=== PATIENT | male | born 1960 | race American Indian/Alaskan Native ===

== ENCOUNTER 2020-08-13 18:20 | Emergency (ER) | payer MEDICAID ==
--- NOTE | 2020-08-13 20:11 | Event Note ---
ED Screening Note ED Screening Note: Patient presents for hyperglycemia Has been out of his Metformin 100 mg twice daily for a month He states he is also out of his Seroquel, advised patient that we do not refill Seroquel from the emergency department This initial assessment/diagnostic orders/clinical plan/treatment(s) is/are subject to change based on patients health status, clinical progression and re- assessment by fellow clinical providers in the ED. Further treatment and workup at subsequent clinical providers discretion. Patient/guardian urged not to elope from the ED as their condition may be serious if not clinically assessed and managed. Initial orders include: labs
[2020-08-13 20:56] LABS: Basophils # (Auto) 0.1 K/mm3 (0.0-0.1); Eosinophils # (Auto) 0.1 K/mm3 (0.0-0.4); Eosinophils % (Auto) 1.3 % (0.0-4.3); Hematocrit 38.2 % (35.5-45.6); Hemoglobin 12.9 gm/dl (11.8-15.2); Lymphocytes # (Auto) 2.4 K/mm3 (1.2-5.4); Lymphocytes % (Auto) 29.4 % (13.4-35.0); Mean Corpuscular HGB Conc 34 % (32-34); Mean Corpuscular Volume 95 fl (84-94); Monocytes # (Auto) 0.7 K/mm3 (0.0-0.8); Monocytes % (Auto) 8.2 % (0.0-7.3); Platelet Count 346 K/mm3 (140-440); Red Blood Count 4.03 M/mm3 (3.65-5.03); Red Cell Distribution Width 14.2 % (13.2-15.2)
[2020-08-13 21:12] LABS: Alanine Aminotransferase 102 units/L (7-56); Albumin 4.1 g/dL (3.9-5); Blood Urea Nitrogen 9 mg/dL (9-20); Calcium 9.4 mg/dL (8.4-10.2); Hemolysis Index 42
[2020-08-13] MEDS ORDERED: SODIUM CHLORIDE 0.9% 1000 ML 1,000 ML IV ONE ×2 (21:27→21:29)
[2020-08-13 21:30] LABS: BUN/Creatinine Ratio 13
--- NOTE | 2020-08-13 22:39 | Emergency Department Report ---
ED General Adult HPI - General Chief complaint: Medical Clearance Stated complaint: DIBETIS Time Seen by Provider: 08/13/20 20:00 Source: patient Mode of arrival: Ambulatory Limitations: No Limitations - History of Present Illness Initial comments: This is a 60-year-old male nontoxic, well nourished in appearance, no acute signs of distress presents to the ED with c/o of hyperglycemia. Patient stated he has been out of his Metformin 500 mg BID for the past 1 month. Patient otherwise denies any symptoms or pain. Patient state he came into emergency room for medication refill. Patient denies any chest pain, shortness of breath, fever, chills, nausea, vomiting, headache or stiff neck. Patient denies any abdominal pain or back pain or flank pain. Patient stated allergies to penicillin. Patient denies any suicidal or homicidal ideation. Severity scale (0 -10): 0 Improves with: none Worsens with: none Associated Symptoms: denies other symptoms. denies: confusion, chest pain, cough, diaphoresis, fever/chills, headaches, loss of appetite, malaise, nausea/vomiting, rash, seizure, shortness of breath, syncope, weakness Treatments Prior to Arrival: none - Related Data Previous Rx's Medication Instructions Recorded Last Taken Type metFORMIN [Glucophage] 500 mg PO BID #30 tablet 08/14/20 Unknown Rx Allergies Allergy/AdvReac Type Severity Reaction Status Date / Time Penicillins Allergy Unknown Verified 08/13/20 19:42 ED Review of Systems ROS: Stated complaint: DIBETIS Other details as noted in HPI Comment: All other systems reviewed and negative Constitutional: denies: chills, fever Eyes: denies: eye pain, eye discharge, vision change ENT: denies: ear pain, throat pain Respiratory: denies: cough, shortness of breath, wheezing Cardiovascular: denies: chest pain, palpitations Endocrine: no symptoms reported Gastrointestinal: denies: abdominal pain, nausea, diarrhea Genitourinary: denies: urgency, dysuria Musculoskeletal: denies: back pain, joint swelling, arthralgia Skin: denies: rash, lesions Neurological: denies: headache, weakness, paresthesias Psychiatric: denies: anxiety, depression Hematological/Lymphatic: denies: easy bleeding, easy bruising ED Past Medical Hx - Past Medical History Previous Medical History?: Yes Hx Hypertension: Yes Hx Diabetes: Yes Hx Psychiatric Treatment: Yes (depression) - Surgical History Past Surgical History?: Yes Additional Surgical History: spleen removed - Medications Home Medications: Home Medications Medication Instructions Recorded Confirmed Last Taken Type metFORMIN [Glucophage] 500 mg PO BID #30 tablet 08/14/20 Unknown Rx ED Physical Exam - General Limitations: No Limitations General appearance: alert, in no apparent distress - Head Head exam: Present: atraumatic, normocephalic - Eye Eye exam: Present: normal appearance - Neck Neck exam: Present: normal inspection, full ROM. Absent: tenderness, meni ngismus, lymphadenopathy - Respiratory Respiratory exam: Present: normal lung sounds bilaterally. Absent: respiratory distress, wheezes, rales, rhonchi, stridor, chest wall tenderness, accessory muscle use, decreased breath sounds, prolonged expiratory - Cardiovascular Cardiovascular Exam: Present: regular rate, normal rhythm, normal heart sounds. Absent: bradycardia, tachycardia, irregular rhythm, systolic murmur, diastolic murmur, rubs, gallop - GI/Abdominal GI/Abdominal exam: Present: soft, normal bowel sounds. Absent: distended, tenderness, guarding, rebound, rigid, diminished bowel sounds - Extremities Exam Extremities exam: Present: full ROM - Back Exam Back exam: Present: full ROM - Neurological Exam Neurological exam: Present: alert, oriented X3, normal gait - Psychiatric Psychiatric exam: Present: normal affect, normal mood - Skin Skin exam: Present: warm, dry, intact, normal color. Absent: rash ED Course Vital Signs 08/13/20 19:46 Temperature 98.4 F Pulse Rate 82 Respiratory 16 Rate Blood Pressure 148/83 O2 Sat by Pulse 97 Oximetry - Reevaluation(s) Reevaluation #1: 08/13/20 22:37 Patient is speaking in full sentences with no signs of distress noted. ED Medical Decision Making - Lab Data Result diagrams: 08/13/20 20:35 08/13/20 20:35 Lab Results 08/13/20 08/13/20 08/13/20 Range/Units 20:06 20:35 20:35 WBC 8.1 (4.5-11.0) K/mm3 RBC 4.03 (3.65-5.03) M/mm3 Hgb 12.9 (11.8-15.2) gm/dl Hct 38.2 (35.5-45.6) % MCV 95 H (84-94) fl MCH 32 (28-32) pg MCHC 34 (32-34) % RDW 14.2 (13.2-15.2) % Plt Count 346 (140-440) K/mm3 Lymph % (Auto) 29.4 (13.4-35.0) % [place] % (Auto) 8.2 H (0.0-7.3) % Eos % (Auto) 1.3 (0.0-4.3) % Baso % (Auto) 1.0 (0.0-1.8) % Lymph # (Auto) 2.4 (1.2-5.4) K/mm3 [place] # (Auto) 0.7 (0.0-0.8) K/mm3 Eos # (Auto) 0.1 (0.0-0.4) K/mm3 Baso # (Auto) 0.1 (0.0-0.1) K/mm3 Seg Neutrophils % 60.1 (40.0-70.0) % Seg Neutrophils # 4.9 (1.8-7.7) K/mm3 VBG pH (7.320-7.420) Sodium 134 L (137-145) mmol/L Potassium 3.8 (3.6-5.0) mmol/L Chloride 101.9 (98-107) mmol/L Carbon Dioxide 19 L (22-30) mmol/L Anion Gap 17 mmol/L BUN 9 (9-20) mg/dL Creatinine 0.7 L (0.8-1.3) mg/dL Estimated GFR > 60 ml/min BUN/Creatinine Ratio 13 % Glucose 350 H (75-100) mg/dL POC Glucose 351 H (70-105) mg/dL Calcium 9.4 (8.4-10.2) mg/dL Total Bilirubin 0.20 (0.1-1.2) mg/dL AST 84 H (5-40) units/L ALT 102 H (7-56) units/L Alkaline Phosphatase 295 H (35-129) units/L Total Protein 7.1 (6.3-8.2) g/dL Albumin 4.1 (3.9-5) g/dL Albumin/Globulin Ratio 1.4 % 12/21/20 Range/Units 20:35 WBC (4.5-11.0) K/mm3 RBC (3.65-5.03) M/mm3 Hgb (11.8-15.2) gm/dl Hct (35.5-45.6) % MCV (84-94) fl MCH (28-32) pg MCHC (32-34) % RDW (13.2-15.2) % Plt Count (140-440) K/mm3 Lymph % (Auto) (13.4-35.0) % [place] % (Auto) (0.0-7.3) % Eos % (Auto) (0.0-4.3) % Baso % (Auto) (0.0-1.8) % Lymph # (Auto) (1.2-5.4) K/mm3 [place] # (Auto) (0.0-0.8) K/mm3 Eos # (Auto) (0.0-0.4) K/mm3 Baso # (Auto) (0.0-0.1) K/mm3 Seg Neutrophils % (40.0-70.0) % Seg Neutrophils # (1.8-7.7) K/mm3 VBG pH 7.366 (7.320-7.420) Sodium (137-145) mmol/L Potassium (3.6-5.0) mmol/L Chloride (98-107) mmol/L Carbon Dioxide (22-30) mmol/L Anion Gap mmol/L BUN (9-20) mg/dL Creatinine (0.8-1.3) mg/dL Estimated GFR ml/min BUN/Creatinine Ratio % Glucose (75-100) mg/dL POC Glucose (70-105) mg/dL Calcium (8.4-10.2) mg/dL Total Bilirubin (0.1-1.2) mg/dL AST (5-40) units/L ALT (7-56) units/L Alkaline Phosphatase (35-129) units/L Total Protein (6.3-8.2) g/dL Albumin (3.9-5) g/dL Albumin/Globulin Ratio % Lab Results 08/13/20 08/13/20 08/13/20 Range/Units 20:06 20:35 20:35 WBC 8.1 (4.5-11.0) K/mm3 RBC 4.03 (3.65-5.03) M/mm3 Hgb 12.9 (11.8-15.2) gm/dl Hct 38.2 (35.5-45.6) % MCV 95 H (84-94) fl MCH 32 (28-32) pg MCHC 34 (32-34) % RDW 14.2 (13.2-15.2) % Plt Count 346 (140-440) K/mm3 Lymph % (Auto) 29.4 (13.4-35.0) % [place] % (Auto) 8.2 H (0.0-7.3) % Eos % (Auto) 1.3 (0.0-4.3) % Baso % (Auto) 1.0 (0.0-1.8) % Lymph # (Auto) 2.4 (1.2-5.4) K/mm3 [place] # (Auto) 0.7 (0.0-0.8) K/mm3 Eos # (Auto) 0.1 (0.0-0.4) K/mm3 Baso # (Auto) 0.1 (0.0-0.1) K/mm3 Seg Neutrophils % 60.1 (40.0-70.0) % Seg Neutrophils # 4.9 (1.8-7.7) K/mm3 VBG pH (7.320-7.420) Sodium 134 L (137-145) mmol/L Potassium 3.8 (3.6-5.0) mmol/L Chloride 101.9 (98-107) mmol/L Carbon Dioxide 19 L (22-30) mmol/L Anion Gap 17 mmol/L BUN 9 (9-20) mg/dL Creatinine 0.7 L (0.8-1.3) mg/dL Estimated GFR > 60 ml/min BUN/Creatinine Ratio 13 % Glucose 350 H (75-100) mg/dL POC Glucose 351 H (70-105) mg/dL Calcium 9.4 (8.4-10.2) mg/dL Total Bilirubin 0.20 (0.1-1.2) mg/dL AST 84 H (5-40) units/L ALT 102 H (7-56) units/L Alkaline Phosphatase 295 H (35-129) units/L Total Protein 7.1 (6.3-8.2) g/dL Albumin 4.1 (3.9-5) g/dL Albumin/Globulin Ratio 1.4 % 12/21/20 12/22/20 Range/Units 20:35 00:39 WBC (4.5-11.0) K/mm3 RBC (3.65-5.03) M/mm3 Hgb (11.8-15.2) gm/dl Hct (35.5-45.6) % MCV (84-94) fl MCH (28-32) pg MCHC (32-34) % RDW (13.2-15.2) % Plt Count (140-440) K/mm3 Lymph % (Auto) (13.4-35.0) % [place] % (Auto) (0.0-7.3) % Eos % (Auto) (0.0-4.3) % Baso % (Auto) (0.0-1.8) % Lymph # (Auto) (1.2-5.4) K/mm3 [place] # (Auto) (0.0-0.8) K/mm3 Eos # (Auto) (0.0-0.4) K/mm3 Baso # (Auto) (0.0-0.1) K/mm3 Seg Neutrophils % (40.0-70.0) % Seg Neutrophils # (1.8-7.7) K/mm3 VBG pH 7.366 (7.320-7.420) Sodium (137-145) mmol/L Potassium (3.6-5.0) mmol/L Chloride (98-107) mmol/L Carbon Dioxide (22-30) mmol/L Anion Gap mmol/L BUN (9-20) mg/dL Creatinine (0.8-1.3) mg/dL Estimated GFR ml/min BUN/Creatinine Ratio % Glucose (75-100) mg/dL POC Glucose 248 H (70-105) mg/dL Calcium (8.4-10.2) mg/dL Total Bilirubin (0.1-1.2) mg/dL AST (5-40) units/L ALT (7-56) units/L Alkaline Phosphatase (35-129) units/L Total Protein (6.3-8.2) g/dL Albumin (3.9-5) g/dL Albumin/Globulin Ratio % - Medical Decision Making 60-year-old male that presents with hyperglycemia. Patient is stable and was examined by me. Labs are unremarkable. Patient is not in DKA. Patient received 2 L normal saline which sugar levels has decreased. Patient will be discharged with refill for his Metformin. Patient otherwise is stable and exam is unremarkable. Patient was instructed to follow-up with a primary care doctor in 3-5 days or if symptoms worsen and continue return to emergency room as soon as possible. At time of discharge, the patient does not seem toxic or ill in appearance. No acute signs of distress noted. Patient agrees to discharge treatment plan of care. No further questions noted by the patient. Critical care attestation.: If time is entered above; I have spent that time in minutes in the direct care of this critically ill patient, excluding procedure time. ED Disposition Clinical Impression: Hyperglycemia due to diabetes mellitus, Noncompliance with diabetes treatment Disposition: DC- TO HOME OR SELFCARE Is pt being admited?: No Does the pt Need Aspirin: No Condition: Stable Instructions: Diabetes Mellitus Type 2 in Adults (ED), Type 2 Diabetes Mellitus, Self Care, Adult, [id number] Additional Instructions: Follow-up with a primary care doctor in 3-5 days or if symptoms worsen and continue return to emergency room as soon as possible. Prescriptions: metFORMIN [Glucophage] 500 mg PO BID #30 tablet Referrals: PRIMARY MD RALPH [Primary Care Provider] - 3-5 Days CLARIBEL ERICKSON MD [Staff Physician] - 3-5 Days Time of Disposition: 00:52
[2020-08-14 01:37] VITALS: BP 187/103
== END 2020-08-14 01:38 | disposition home or self-care (01) ==
LOC: ED 18:20
DX: E11.65 Type 2 diabetes mellitus with hyperglycemia (principal); I10 Essential (primary) hypertension; F32.9 Major depressive disorder, single episode, unspecified; Z91.19 Patient's noncompliance with other medical treatment and regimen; Z98.890 Other specified postprocedural states; Z79.84 Long term (current) use of oral hypoglycemic drugs; Z88.0 Allergy status to penicillin
CPT/HCPCS: 36415; 80053; 82805; 82962; 85025; 96360; 96361; 99283; J7030

== ENCOUNTER 2020-10-10 18:49 | Emergency (ER) | payer MEDICAID ==
[2020-10-10 19:19] VITALS: BP 163/83
[2020-10-10] MEDS ORDERED: SODIUM CHLORIDE 0.9% 1000 ML 1,000 ML IV ONE (19:37)
--- NOTE | 2020-10-10 19:37 | Emergency Department Report ---
ED General Adult HPI - General Chief complaint: Hyperglycemia Stated complaint: DIABETIC/MED REFILL/RASH/LEGS PUI?: No Source: patient Mode of arrival: Ambulatory Limitations: No Limitations - History of Present Illness Initial comments: 60 /o male with a diabetes and has been off his Metformin for several months. Complains of dry month urinary frequency. Admits that he drinks and had a few beers today. He denies any pain. Patient reports he does not have a primary care provider that is local. Patient denies any chest pain shortness of breathing abdominal pain nausea vomiting or diarrhea. Onset/Timin -: month(s) Severity scale (0 -10): 0 Improves with: none Worsens with: none Associated Symptoms: denies: loss of appetite, weakness Treatments Prior to Arrival: none - Related Data Previous Rx's Medication Instructions Recorded Last Taken Type metFORMIN [Glucophage] 500 mg PO BID #30 tablet 08/14/20 Unknown Rx Metformin HCl [metFORMIN] 1,000 mg PO BID #60 tablet 10/10/20 Unknown Rx Allergies Allergy/AdvReac Type Severity Reaction Status Date / Time Penicillins Allergy Unknown Verified 08/13/20 19:42 ED Review of Systems ROS: Stated complaint: DIABETIC/MED REFILL/RASH/LEGS Other details as noted in HPI Comment: All other systems reviewed and negative ED Past Medical Hx - Past Medical History Hx Hypertension: Yes Hx Diabetes: Yes Hx Psychiatric Treatment: Yes (depression) - Surgical History Additional Surgical History: spleen removed - Social History Smoking Status: Current Every Day Smoker Substance Use Type: None - Medications Home Medications: Home Medications Medication Instructions Recorded Confirmed Last Taken Type metFORMIN [Glucophage] 500 mg PO BID #30 tablet 08/14/20 Unknown Rx Metformin HCl [metFORMIN] 1,000 mg PO BID #60 tablet 10/10/20 Unknown Rx ED Physical Exam - General Limitations: No Limitations General appearance: alert, in no apparent distress - Head Head exam: Present: atraumatic, normocephalic - Eye Eye exam: Present: normal appearance - ENT ENT exam: Present: mucous membranes moist - Neck Neck exam: Present: normal inspection - Respiratory Respiratory exam: Present: normal lung sounds bilaterally. Absent: respiratory distress - Cardiovascular Cardiovascular Exam: Present: regular rate, normal rhythm. Absent: systolic murmur, diastolic murmur, rubs, gallop - GI/Abdominal GI/Abdominal exam: Present: soft, normal bowel sounds - Rectal Rectal exam: Present: deferred - Extremities Exam Extremities exam: Present: normal inspection - Back Exam Back exam: Present: normal inspection - Neurological Exam Neurological exam: Present: alert, oriented X3 - Psychiatric Psychiatric exam: Present: normal affect, normal mood - Skin Skin exam: Present: warm, dry, intact, normal color. Absent: rash ED Course Vital Signs 10/10/20 19:17 Temperature 97.7 F Pulse Rate 98 H Respiratory 18 Rate Blood Pressure 163/83 ED Medical Decision Making - Lab Data Result diagrams: 10/10/20 19:49 10/10/20 19:49 - Medical Decision Making 60 /o male with a diabetes and has been off his Metformin for several months. Complains of dry month urinary frequency. Admits that he drinks and had a few beers today. He denies any pain. Patient reports he does not have a primary care provider that is local. Patient denies any chest pain shortness of b reathing abdominal pain nausea vomiting or diarrhea. Critical care attestation.: If time is entered above; I have spent that time in minutes in the direct care of this critically ill patient, excluding procedure time. ED Disposition Clinical Impression: Diabetes, Medically noncompliant, Tobacco abuse Disposition: DC-01 TO HOME OR SELFCARE Is pt being admited?: No Does the pt Need Aspirin: No Condition: Stable Instructions: Diabetes Mellitus Type 2 in Adults (ED), Type 2 Diabetes Mellitus, Diagnosis, Adult, Type 2 Diabetes Mellitus, Self Care, Adult, [id number] Additional Instructions: Please take your medications as prescribed. Is very important for you to follow-up with a primary care provider I have listed several below for your convenience. Prescriptions: Metformin HCl [metFORMIN] 1,000 mg PO BID #60 tablet Referrals: PRIMARY CARE, [Primary Care Provider] - 3-5 Days [facility] [Provider Group] - 3-[address] [facility] [Provider Group] - 3-5 Days Forms: Work/School Release Form(ED)
[2020-10-10 20:06] LABS: Basophils # (Auto) 0.1 K/mm3 (0.0-0.1); Basophils % (Auto) 1.2 % (0.0-1.8); Eosinophils # (Auto) 0.1 K/mm3 (0.0-0.4); Eosinophils % (Auto) 1.6 % (0.0-4.3); Hematocrit 36.7 % (35.5-45.6); Hemoglobin 12.5 gm/dl (11.8-15.2); Lymphocytes # (Auto) 2.4 K/mm3 (1.2-5.4); Lymphocytes % (Auto) 32.3 % (13.4-35.0); Mean Corpuscular HGB Conc 34 % (32-34); Mean Corpuscular Volume 94 fl (84-94); Monocytes # (Auto) 0.7 K/mm3 (0.0-0.8); Monocytes % (Auto) 10.1 % (0.0-7.3); Platelet Count 291 K/mm3 (140-440); Red Blood Count 3.91 M/mm3 (3.65-5.03); Red Cell Distribution Width 14.7 % (13.2-15.2)
[2020-10-10 21:05] LABS: Alanine Aminotransferase 107 units/L (7-56); Albumin 4.5 g/dL (3.9-5); Blood Urea Nitrogen 6 mg/dL (9-20); Calcium 9.3 mg/dL (8.4-10.2); Hemolysis Index 11
[2020-10-10 21:06] LABS: BUN/Creatinine Ratio 9
[2020-10-10 22:14] LABS: Bilirubin,Urine NEG (Negative); Blood,Urine NEG (Negative); Color,Urine Colorless (Yellow); Protein,Urine <15 mg/dL mg/dL (Negative); Urobilinogen,Urine < 2.0 mg/dL (<2.0)
[2020-10-10 22:16] LABS: RBC,Urine < 1.0 /HPF (0.0-6.0); WBC,Urine < 1.0 /HPF (0.0-6.0)
== END 2020-10-10 22:17 | disposition home or self-care (01) ==
LOC: ED 18:49
DX: E11.65 Type 2 diabetes mellitus with hyperglycemia (principal); F17.200 Nicotine dependence, unspecified, uncomplicated; Z91.14 Patient's other noncompliance with medication regimen; I10 Essential (primary) hypertension; F32.9 Major depressive disorder, single episode, unspecified; Z98.890 Other specified postprocedural states; Z79.84 Long term (current) use of oral hypoglycemic drugs; Z88.0 Allergy status to penicillin
CPT/HCPCS: 36415; 80053; 81001; 82962; 85025; 96360; 99283; J7030

== ENCOUNTER 2021-01-30 16:10 | Emergency (ER) | payer MEDICAID ==
[2021-01-30 18:05] VITALS: BP 154/70
--- NOTE | 2021-01-30 18:08 | Emergency Department Report ---
ED Recheck HPI - General Chief Complaint: Medical Clearance Stated Complaint: ELEVATED GLUCOSE LEVEL Time Seen by Provider: 01/30/21 18:01 Source: patient Mode of arrival: Ambulatory Limitations: No Limitations - History of Present Illness Initial Comments: Patient is a 61-year-old male presents emergency room with complaints of medication refill. He states he has been out of his Metformin 1000 mg twice daily for approximately 1 month. He states that he checked his sugar today and it was in the 200s. Patient states that he also has chronic right knee pain secondary to a previous fracture. He denies any acute fall or injury. He is ambulatory without difficulty. He denies any numbness or weakness. No other past medical history. Allergy to penicillin. He reports that he is also out of his Seroquel. [id number] glucose check is 213 - Related Data Previous Rx's Medication Instructions Recorded Last Taken Type metFORMIN [Glucophage] 500 mg PO BID #30 tablet 08/14/20 Unknown Rx Metformin HCl [metFORMIN] 1,000 mg PO BID #60 tablet 10/10/20 Unknown Rx Acetaminophen [Tylenol] 325 mg PO Q8HR PRN #20 capsule 01/30/21 Unknown Rx metFORMIN [Glucophage] 1,000 mg PO BID #120 tablet 01/30/21 Unknown Rx Allergies Allergy/AdvReac Type Severity Reaction Status Date / Time Penicillins Allergy Unknown Verified 08/13/20 19:42 ED Review of Systems ROS: Stated complaint: ELEVATED GLUCOSE LEVEL Other details as noted in HPI Comment: All other systems reviewed and negative ED Past Medical Hx - Past Medical History Hx Hypertension: Yes Hx Diabetes: Yes Hx Psychiatric Treatment: Yes (depression) - Surgical History Additional Surgical History: spleen removed - Social History Smoking Status: Never Smoker - Medications Home Medications: Home Medications Medication Instructions Recorded Confirmed Last Taken Type metFORMIN [Glucophage] 500 mg PO BID #30 tablet 08/14/20 Unknown Rx Metformin HCl [metFORMIN] 1,000 mg PO BID #60 tablet 10/10/20 Unknown Rx Acetaminophen [Tylenol] 325 mg PO Q8HR PRN #20 capsule 01/30/21 Unknown Rx metFORMIN [Glucophage] 1,000 mg PO BID #120 tablet 01/30/21 Unknown Rx ED Physical Exam - General Limitations: No Limitations General appearance: alert, in no apparent distress - Head Head exam: Present: atraumatic, normocephalic - Eye Eye exam: Present: normal appearance - ENT ENT exam: Present: mucous membranes moist - Respiratory Respiratory exam: Present: normal lung sounds bilaterally. Absent: respiratory distress, wheezes, rales, rhonchi, stridor, chest wall tenderness, accessory muscle use, decreased breath sounds, prolonged expiratory - Cardiovascular Cardiovascular Exam: Present: regular rate, normal rhythm, normal heart sounds. Absent: systolic murmur, diastolic murmur, rubs, gallop - Extremities Exam Extremities exam: Present: other (no bony ttp of the RLE, FROM of the RLE, no obvious deformity, neurovascularly intact) - Neurological Exam Neurological exam: Present: alert, oriented X3 - Psychiatric Psychiatric exam: Present: normal affect, normal mood - Skin Skin exam: Present: warm, dry, intact ED Course Vital Signs 01/30/21 17:57 Temperature 98.0 F Pulse Rate 73 Respiratory 18 Rate Blood Pressure 154/70 O2 Sat by Pulse 100 Oximetry ED Recheck MDM - Medical Decision Making Patient is a 61-year-old male presents emergency room with complaints of medication refill. He states he has been out of his Metformin 1000 mg twice daily for approximately 1 month. He states that he checked his sugar today and it was in the 200s. Patient states that he also has chronic right knee pain secondary to a previous fracture. He denies any acute fall or injury. He is ambulatory without difficulty. He denies any numbness or weakness. No other past medical history. Allergy to penicillin. He reports that he is also out of his Seroquel. [id number] glucose check is 213 Vitals are stable. On exam: no bony ttp of the RLE, FROM of the RLE, no obvious deformity, neurovascularly intact. Patient has chronic knee pain from a prior injury, no acute trauma, no signs of septic joint or acute gout, no signs of DVT or acute arterial occlusion at this time. Patient given refill of his home medication 1000 mg of Metformin twice daily. Patient will be referred to primary care doctor. Advised patient Please take medication as prescribed. Please follow-up with a primary care doctor. Return to emergency room for any new or worsening symptoms. Critical care attestation.: If time is entered above; I have spent that time in minutes in the direct care of this critically ill patient, excluding procedure time. ED Disposition Clinical Impression: Hyperglycemia, Medication refill, Chronic pain of right knee Disposition: DC- TO HOME OR SELFCARE Is pt being admited?: No Does the pt Need Aspirin: No Condition: Stable Instructions: Hyperglycemia, [id number] Additional Instructions: Please take medication as prescribed. Please follow-up with a primary care doctor. Return to emergency room for any new or worsening symptoms. Prescriptions: metFORMIN [Glucophage] 1,000 mg PO BID #120 tablet Acetaminophen [Tylenol] 325 mg PO Q8HR PRN #20 capsule PRN Reason: pain Referrals: CLARIBEL ERICKSON MD [Staff Physician] - 3-5 Days [facility] [Provider Group] - 3-5 Days KANG DODSON MD [Staff Physician] - 3-5 Days [facility] [Outside] - 3-5 Days Time of Disposition: 18:07 Print Language: DANISH
== END 2021-01-30 19:00 | disposition home or self-care (01) ==
LOC: ED 16:10
DX: E11.65 Type 2 diabetes mellitus with hyperglycemia (principal); M25.561 Pain in right knee; G89.29 Other chronic pain; Z76.0 Encounter for issue of repeat prescription; I10 Essential (primary) hypertension; Z98.890 Other specified postprocedural states; Z79.84 Long term (current) use of oral hypoglycemic drugs; Z79.899 Other long term (current) drug therapy; Z88.0 Allergy status to penicillin
CPT/HCPCS: 82962; 99282